=== PATIENT | female | born 1995 | race Caucasian/White ===

== ENCOUNTER 2016-12-12 15:15 | Emergency (ER) | payer BC, SELFPAY ==
[~2016-12-12] VITALS: Ht 157.5 cm; Wt 97.7 kg
[2016-12-12 15:16] VITALS: BP 146/72
== END 2016-12-12 16:39 | disposition home or self-care (01) ==
LOC: M ED 16:08
DX: R10.2 Pelvic and perineal pain (principal)

== ENCOUNTER → 2016-12-24 | Outpatient (REF) | payer SELFPAY | LOC: M SFHCPLAZ 17:24 | PROVIDERS: ATTEND Nurse Practitioner Family | DX: N92.6 Irregular menstruation, unspecified (principal) ==

== ENCOUNTER → 2016-12-26 | Outpatient (REF) | payer SELFPAY | LOC: M SFHCWAGY 16:10 | PROVIDERS: ATTEND Nurse Practitioner Family | DX: O26.891 Other specified pregnancy related conditions, first trimester (principal); N94.9 Unspecified condition associated with female genital organs and menstrual cycle ==

== ENCOUNTER → 2017-01-01 | Outpatient (REF) | payer SELFPAY | LOC: M LABDRAWP 16:55 | PROVIDERS: ATTEND Nurse Practitioner Family | DX: O03.9 Complete or unspecified spontaneous abortion without complication (principal) ==

== ENCOUNTER 2017-09-08 15:51 | Emergency (ER) | payer BC, SELFPAY ==
[2017-09-08 19:05] LABS: BASO # 0.1 10^3/uL (0.0-0.2); BASO % 0.8 % (0.0-1.0); EOS # 0.4 10^3/uL (0.0-0.50); EOS % 5.3 % (0.0-3.0); HEMATOCRIT 46.4 % (36.0-47.0); HEMOGLOBIN 14.2 g/dl (12.0-16.0); IMMATURE GRANULOCYTE % 0.2 % (0-3.0); LYMPH # 2.2 10^3/uL (1.5-6.5); LYMPH % 26.9 % (24.0-44.0); MEAN CORPUSCULAR HEMOGLOBIN 22.6 pg (27.0-33.0); MEAN CORPUSCULAR HGB CONC 30.6 g/dl (32.0-36.5); MEAN CORPUSCULAR VOLUME 73.9 fl (80.0-96.0); MONO # 0.6 10^3/uL (0.0-0.8); MONO % 7.6 % (0.0-5.0); NEUTROPHILS # 4.9 10^3/uL (1.8-7.7); NEUTROPHILS % 59.2 % (36.0-66.0); PLATELET COUNT, AUTOMATED 312 10^3/uL (150-450); RED BLOOD COUNT 6.28 10^6/uL (4.00-5.40); RED CELL DISTRIBUTION WIDTH 14.7 % (11.5-14.5); WHITE BLOOD COUNT 8.3 10^3/uL (4.0-10.0)
[2017-09-08] MEDS: NS 1,000 ML IV (19:08)
[2017-09-08 19:20] LABS: KETONE, URINE AUTO RFX NEGATIVE (NEGATIVE); LEUKOCYTE ESTERASE UR AUTO RFX NEGATIVE (NEGATIVE); MUCUS, URINE RFX SMALL (NEGATIVE); NITRITE, URINE AUTO RFX NEGATIVE (NEGATIVE); RBC, URINE AUTO RFX 1 /HPF (0-3); SPECIFIC GRAVITY UR AUTO RFX 1.028 (1.002-1.035); SQUAM EPITHELIAL CELL UR AURFX 5 /HPF (0-6); WBC, URINE AUTO RFX 1 /HPF (0-3)
[2017-09-08 19:31] LABS: ALBUMIN 3.9 GM/DL (3.2-5.2); ALBUMIN/GLOBULIN RATIO 1.11 (1.00-1.93); ALKALINE PHOSPHATASE 109 U/L (45-117); ALT/SGPT 21 U/L (12-78); ANION GAP 5 MEQ/L (8-16); AST/SGOT 11 U/L (7-37); BILIRUBIN,DIRECT 0.2 MG/DL (0.0-0.2); BILIRUBIN,TOTAL 0.5 MG/DL (0.2-1.0); BLOOD UREA NITROGEN 12 MG/DL (7-18); CALCIUM LEVEL 8.8 MG/DL (8.5-10.1); CARBON DIOXIDE LEVEL 30 MEQ/L (21-32); CHLORIDE LEVEL 106 MEQ/L (98-107); CREATININE FOR GFR 0.71 MG/DL (0.55-1.30); GLOMERULAR FILTRATION RATE > 60.0 (>60); GLUCOSE, FASTING 85 MG/DL (70-100); LIPASE 110 U/L (73-393); POTASSIUM SERUM 4.1 MEQ/L (3.5-5.1); SODIUM LEVEL 141 MEQ/L (136-145); TOTAL PROTEIN 7.4 GM/DL (6.4-8.2)
[2017-09-08] MEDS ORDERED: ISOVUE-370 76% 100ML VIAL (Q9967) As Ordered (19:58)
== END 2017-09-08 20:56 | disposition home or self-care (01) ==
LOC: M ED 15:51
DX: R10.31 Right lower quadrant pain (principal); R10.32 Left lower quadrant pain; R11.0 Nausea; N28.1 Cyst of kidney, acquired
CPT/HCPCS: Q9967

== ENCOUNTER → 2019-04-13 | Outpatient (REF) | payer BC ==
[2019-04-13 21:33] LABS: APPEARANCE, URINE CLEAR (CLEAR); BACTERIA, URINE AUTO NEGATIVE (NEGATIVE); BILIRUBIN, URINE AUTO NEGATIVE (NEGATIVE); BLOOD, URINE BLOOD NEGATIVE (NEGATIVE); COLOR, URINE AMBER (YELLOW); GLUCOSE, URINE (UA) AUTO NEGATIVE (NEGATIVE); KETONE, URINE AUTO NEGATIVE (NEGATIVE); LEUKOCYTE ESTERASE, URINE AUTO NEGATIVE (NEGATIVE); MUCUS, URINE MODERATE (NEGATIVE); NITRITE, URINE AUTO POSITIVE (NEGATIVE); PROTEIN, URINE AUTO NEGATIVE (NEGATIVE); RBC, URINE AUTO 1 /HPF (0-3); SQUAMOUS EPITHELIAL CELL UR AU 2 /HPF (0-6); WBC, URINE AUTO 2 /HPF (0-3)
== END ==
LOC: M LAB REF 10:59
PROVIDERS: ATTEND Physician Assistant Medical
DX: N39.0 Urinary tract infection, site not specified (principal)

== ENCOUNTER → 2019-06-11 | Outpatient (CLI) | payer BC, OTHER ==
[2019-06-11 13:37] LABS: BASO # 0.1 10^3/uL (0.0-0.2); BASO % 0.8 % (0.0-1.0); EOS # 0.4 10^3/uL (0.0-0.5); EOS % 6.5 % (0.0-3.0); HEMOGLOBIN 13.4 g/dl (12.0-15.5); LYMPH # 1.8 10^3/uL (1.5-5.0); LYMPH % 27.1 % (24.0-44.0); MEAN CORPUSCULAR HEMOGLOBIN 24.2 pg (27.0-33.0); MEAN CORPUSCULAR HGB CONC 31.9 g/dl (32.0-36.5); MEAN CORPUSCULAR VOLUME 75.9 fl (80.0-96.0); MONO # 0.5 10^3/uL (0.0-0.8); MONO % 6.8 % (0.0-5.0); NEUTROPHILS # 3.9 10^3/uL (1.5-8.5); NEUTROPHILS % 58.6 % (36.0-66.0); PLATELET COUNT, AUTOMATED 227 10^3/uL (150-450); RED BLOOD COUNT 5.53 10^6/uL (4.00-5.40); WHITE BLOOD COUNT 6.6 10^3/uL (4.0-10.0)
[2019-06-11 14:29] LABS: HEPATITIS C VIRUS ABY INDEX 0.1 INDEX (<0.8); HIV 1&2 SCREEN CENTAUR NEGATIVE (NEGATIVE); RUBELLA IgG QUALITATIVE IMMUNE (IMMUNE)
== END ==
LOC: M PLALAB 10:16
PROVIDERS: ATTEND Advanced Practice Midwife
DX: Z34.81 Encounter for supervision of other normal pregnancy, first trimester (principal); Z36.89 Encounter for other specified antenatal screening

== ENCOUNTER → 2019-06-17 | Outpatient (CLI) | payer BC, OTHER | LOC: M PLALAB 15:11 | PROVIDERS: ATTEND Advanced Practice Midwife | DX: Z34.82 Encounter for supervision of other normal pregnancy, second trimester (principal); Z3A.00 Weeks of gestation of pregnancy not specified ==

== ENCOUNTER → 2019-07-15 | Outpatient (REF) | payer BC, OTHER ==
[2019-07-16 13:00] LABS: CHLAMYDIA DNA AMPLIFICATION NEGATIVE (NEGATIVE); GC DNA AMPLIFICATION NEGATIVE (NEGATIVE)
== END ==
LOC: M SFHCWAGY 10:23
PROVIDERS: ATTEND Advanced Practice Midwife
DX: Z34.92 Encounter for supervision of normal pregnancy, unspecified, second trimester (principal); Z36.89 Encounter for other specified antenatal screening

== ENCOUNTER → 2019-07-27 | Outpatient (CLI) | payer BC, OTHER ==
--- NOTE | 2019-07-28 05:14 | REP ---
Clinical: Anatomical evaluation. Comparison: None . Findings: Examination demonstrates a single live intrauterine in cephalic presentation. motion is identified by technologist. Placenta is noted posterior and grade zero without evidence for placenta previa or abruption. Amniotic fluid volume is normal. Cervix measures 3.1 cm in length and appears closed. No evidence for nuchal cord. Gestational age by current measurements 19 weeks 0 days with BLANCA 12/21/2019 . FHR equals 144 beats per minute. BPD 4.6 cm 19 weeks 6 days HC 16.1 cm 18 weeks 6 days AC 13.5 cm 19 weeks 0 days FL 2.9 cm 18 weeks 6 days HL 2.7 cm 18 weeks 4 days HC/AC ratio 1.19 Estimated weight 267 grams ( 46th percentile). Anatomical assessment demonstrates normal structures including cranium, choroid plexus, cavum, cerebellum/posterior fossa, facial features, lungs, four-chamber heart/ventricular outflow tracts, diaphragm, stomach, cord insertion/three-vessel cord, kidneys/bladder, spine, and extremities. Impression: 1. Single live intrauterine in cephalic presentation demonstrating appropriate interval growth. 2. Anatomical assessment is complete and normal. No gross abnormalities are identified.
== END ==
LOC: M WHC 15:01
PROVIDERS: ATTEND Advanced Practice Midwife
DX: Z34.92 Encounter for supervision of normal pregnancy, unspecified, second trimester (principal); Z36.89 Encounter for other specified antenatal screening; Z3A.19 19 weeks gestation of pregnancy

== ENCOUNTER → 2019-09-24 | Outpatient (REF) | payer OTHER ==
[2019-09-24 14:02] LABS: HEMATOCRIT 33.7 % (36.0-47.0); HEMOGLOBIN 10.5 g/dl (12.0-15.5); MEAN CORPUSCULAR HEMOGLOBIN 24.1 pg (27.0-33.0); MEAN CORPUSCULAR HGB CONC 31.2 g/dl (32.0-36.5); MEAN CORPUSCULAR VOLUME 77.5 fl (80.0-96.0); PLATELET COUNT, AUTOMATED 219 10^3/uL (150-450); RED BLOOD COUNT 4.35 10^6/uL (4.00-5.40); WHITE BLOOD COUNT 8.8 10^3/uL (4.0-10.0)
== END ==
LOC: M PLALAB 08:21
PROVIDERS: ATTEND Advanced Practice Midwife
DX: O99.212 Obesity complicating pregnancy, second trimester (principal); Z3A.00 Weeks of gestation of pregnancy not specified

== ENCOUNTER 2019-10-03 23:33 | Outpatient (CLI) | payer OTHER ==
[~2019-10-03] VITALS: Ht 157.5 cm; Wt 105.5 kg
[2019-10-03 23:52] VITALS: BP 130/63
[2019-10-03] MEDS ORDERED: TUMS500C PO (23:55)
[2019-10-03] MEDS ORDERED: MULTTAB20 PO (23:55)
[2019-10-03] MEDS ORDERED: MAGN400C PO (23:55)
[2019-10-04 01:48] VITALS: BP 118/73
== END 2019-10-04 02:44 | disposition home or self-care (01) ==
LOC: M LDO 23:33
PROVIDERS: ATTEND Obstetrics & Gynecology
DX: O26.893 Other specified pregnancy related conditions, third trimester (principal); R10.2 Pelvic and perineal pain; Z3A.28 28 weeks gestation of pregnancy
CPT/HCPCS: 59025; 76815; G0378; G0463

== ENCOUNTER → 2019-11-24 | Outpatient (REF) | payer OTHER ==
[~2019-11-24] MED LIST: MAGN400C PO; MULTTAB20 PO; TUMS500C PO
== END ==
LOC: M SFHCWAGY 17:20
PROVIDERS: ATTEND Advanced Practice Midwife
DX: Z34.03 Encounter for supervision of normal first pregnancy, third trimester (principal)

== ENCOUNTER → 2019-12-03 | Outpatient (CLI) | payer BC ==
--- NOTE | 2019-12-03 17:30 | REP ---
Clinical: Growth evaluation Comparison: 07/27/2019 . Findings: Examination demonstrates a single live intrauterine in cephalic presentation. motion is identified by technologist. Placenta is noted anterior and grade I I without evidence for placenta previa or abruption. Amniotic fluid volume is normal. Cervix measures 3.3 cm in length and appears closed. No evidence for nuchal cord. Gestational age by first US 37 weeks 3 days with BLANCA 12/21/2019 . Gestational age by current measurements 36 weeks 6 days with BLANCA 12/25/2019 . FHR equals 143 beats per minute. BPD 9.1 cm 36 weeks 6 days HC 32.9 cm 37 weeks 3 days AC 34.0 cm 37 weeks 6 days FL 7.2 cm 36 weeks 6 days HL 6.4 cm 36 weeks 6 days HC/AC ratio 0.97 Estimated weight 3218 grams ( 56 percentile). Amniotic fluid index: 21.6 cm Impression: Single live intrauterine in cephalic presentation demonstrating appropriate interval growth. No gross abnormalities are identified.
== END ==
LOC: M WHC 14:54
PROVIDERS: ATTEND Advanced Practice Midwife
DX: O26.849 Uterine size-date discrepancy, unspecified trimester (principal)

== ENCOUNTER → 2019-12-07 | Outpatient (REF) | payer OTHER | LOC: M PLALAB 11:12 | PROVIDERS: ATTEND Advanced Practice Midwife | DX: Z3A.01 Less than 8 weeks gestation of pregnancy (principal) ==

== ENCOUNTER 2019-12-27 16:18 | Inpatient (IN) | payer BC, OTHER ==
[~2019-12-27] VITALS: Ht 157.5 cm; Wt 114.9 kg
[2019-12-27 16:34] VITALS: BP 126/65
[2019-12-27] MEDS ORDERED: MAPA500T2 PO (17:07)
[2019-12-27] MEDS ORDERED: LACTATED RINGER'S 1000 ML IV STA (17:37)
[2019-12-27] MEDS ORDERED: miSOPROStol 50 MCG 1/2 TAB (S0191) PO SCH (17:45)
[2019-12-27 17:59] LABS: HEMATOCRIT 29.6 % (36.0-47.0); MEAN CORPUSCULAR HEMOGLOBIN 21.1 pg (27.0-33.0); MEAN CORPUSCULAR HGB CONC 30.4 g/dl (32.0-36.5); MEAN CORPUSCULAR VOLUME 69.3 fl (80.0-96.0); PLATELET COUNT, AUTOMATED 231 10^3/uL (150-450); RED BLOOD COUNT 4.27 10^6/uL (4.00-5.40); WHITE BLOOD COUNT 9.5 10^3/uL (4.0-10.0)
--- NOTE | 2019-12-27 18:13 | HPEPDOC ---
Obstetrical History & Physical General Date of Admission Dec 27, 2019 at 16:18 Primary Care Physician: BREANN PENG CNM History of Present Illness Patient is a 24-year-old female who is a at 40.6 weeks gestation with an BLANCA of 12/21/19 based off of her LMP and consistent with her first trimester ultrasound. She initiated care in her first trimester of with [facility]. Her has been complicated by obesity with her BMI is now 46. She presents for an induction of labor due to being 40+ weeks gestation. Reports active movement. Denies contractions, leaking of fluid or vaginal bleeding. Chief Complaint: Induction of labor Information Provided By: Patient Age: 24 : 2 Term: 0 Pre-term: 0 Abortions: 1 Livin Care Care: Good Care Dating Final EDC: Dec 21, 2019 Final EDC by: LMP LMP: Mar 16, 2019 EGA at Admission: 40.6 Antepartum Course Diagnos(e)s obesity Height (inches): 62 Pre- weight (lbs.): 209 Admission Weight (lbs.): 249 Change in Weight (lbs.): 40 Past Medical History Past Obstetrical History : Past Obstetrical History: Primgravida [employer] History: No pertinent history Past Medical History Medical History Non-contributory Surgical History: Denies/None Family History Significant Family History: Diabetes Social History Marital Status: Single Family situation: Spouse/partner home Psychosocial History: No pertinent psych hx * Smoker: non-smoker Alcohol: Denies Drugs: denies Allergies Coded Allergies: No Known Allergies (Unverified , 12/12/16) Medications Scheduled No122/Iron/Folic Acid ( Multi Tablet) 1 Each Tablet, 1 TAB PO DAILY Scheduled PRN Acetaminophen (Mapap) 500 Mg Tablet, 1,000 MG PO PRN PRN for PAIN OR FEVER Physical Examination Physical Examination GENERAL: Alert and oriented times three. BREAST: . ABDOMEN: Gravid and non-tender to touch. FETUS: Is vertex (VTX) by sterile vaginal examination (SVE), fetus is vertex (VTX) by Jc. HEART RATE: Regular rate and rhythm. LUNGS: Clear to auscultation (CTA). EXTREMITIES: Generalized edema. No clonus. Deep tendon reflexes (DTRs) + 2. Vital Signs/I&O Vital Signs Date Time Temp Pulse Resp B/P (MAP) Pulse Ox O2 Delivery O2 Flow Rate FiO2 12/27/19 16:34 97.5 102 18 126/65 (85) Laboratory Data 24H LABS Laboratory Tests 2 12/27/19 16:23: Serology Scanned Report Hepatitis B Testing Urine Culture: No Growth Pertinent Laboratoy Data Blood Type: AB+ RBC Antibody Screen: Negative HIV: Negative Hepatitis B: Negative Hepatitis C: Negative Rapid Plasma Reagin: Nonreactive Rubella: Immune Chlamydia/Gonorrhea: Negative Group B Streptococcus: Negative Glucose Tolerance Test: 111 Anatomy Ultrasound Ultrasound Date: Dec 03, 2019 Normal Anatomy: Yes (cephalic with SONALI 21.6 cm) Placenta Previa: No Estimated Weight (grams): 3218 Vaginal Examination Dilation: 1cm Effacement: other (75%) Station: Other (Ballotable) Cervical Consistency: Medium Cervical Position: Anterior Presentation: Cephalic presentation Position: Vertex (occiput) Assessment Heart Rate (FHR): 140 Variability: Moderate Accelerations: Positive Decelerations: None Tocometer Contractions: Yes Frequency: irregular Multi-drug resistant Organism: No history of MDRO Assessment/Plan Assessment IUP at 40.6 weeks gestation GBS negative Category I FHR tracing elective induction of labor for post dates Plan Admit to L&D for elective IOL due to post dates. OOB ad ruben. Diet: regular now and switch to clears when IV Pitocin. Group B Streptococcus (GBS) negative. Labs and intravenous (IV) per unit protocol. Counseled on Cytotec, boss bulb, and IV Pitocin for induction of labor (IOL). Anesthesia consult per patient's request for an epidural. Lactated Ringers (LR): Bolus 800 mL prior to epidural, then at 125 mL/hr. Start Cytotec per order. Anticipate cervical ripening. C-S as appropriate. BREANN PENG CNM Dec 27, 2019 18:13
[2019-12-27 19:50] VITALS: BP 114/68
[2019-12-27 21:30] VITALS: BP 132/61
[2019-12-27] MEDS ORDERED: BUTORPHANOL 2 MG/ML INJ (J0595) IV ONE (22:30)
[2019-12-27] MEDS ORDERED: PROMETHAZINE INJ 25 MG/ML VIAL (J2550) IV ONE (22:30)
--- NOTE | 2019-12-27 22:37 | IPNPDOC ---
Obstetrical Progress Note Date of Service Dec 27, 2019 Subjective Patient reports she feels her contractions and they feel like heavy cramps. Objective Vital Signs Date Time Temp Pulse Resp B/P (MAP) Pulse Ox O2 Delivery O2 Flow Rate FiO2 12/27/19 21:30 103 132/61 (84) 12/27/19 19:50 18 12/27/19 16:34 97.5 Assessment Heart Rate (FHR): 135 Variability: Moderate Accelerations: Positive Decelerations: None Heart Rate Tracing: Category I Tocometer Contractions: Yes Frequency: regular, every 1-3 min. Sterile Vaginal Examination Dilation: 1cm Effacement (%): 80% Station: -3 Cervical Consistency: Medium Cervical Position: Anterior Postion/Presentation: Cephalic presentation Assessment and Plan Age: 24 : 2 Term: 0 Pre-term: 0 Abortions: 1 Livin EGA at Admission: 40.6 Status: Reassuring Group B Streptococcus: Negative Anticipate: Vaginal Delivery Additional Comments Arriola bulb placed with 60 cc of NS. Patient tolerated insertion well. Desires IV pain medication to help with cramping. Stadol and phenergan ordered. Side effects of medication reviewed with patient and SO. BREANN PENG CNM Dec 27, 2019 22:37
[2019-12-27] MEDS ORDERED: OXYTOCIN DRIP 30 UNITS in IV 1 EA IV SCH (22:45)
[2019-12-27] MEDS: LR 1,000 ML IV SCH (22:48)
[2019-12-27 23:00] VITALS: BP 111/60
[2019-12-27 23:30] VITALS: BP 107/54
[2019-12-28] VITALS (113 sets, daily range): BP systolic 82–137; BP diastolic 42–76
[2019-12-28] MEDS ORDERED: FENTANYL 2MCG/ML ROPIVACAINE 0.2% IN 0.9% NACL 100ML IVBAG As Ordered ONE ×2 (03:45→12:52)
[2019-12-28] MEDS ORDERED: diphenhydrAMINE 50MG/ML VIAL (J1200) IV PRN ×2 (06:00→20:52)
[2019-12-28] MEDS ORDERED: LACTATED RINGER'S 1000 ML IV PRN (06:00)
[2019-12-28] MEDS ORDERED: REFRIGERATOR IV KEYS XX PRN (06:00)
[2019-12-28] MEDS ORDERED: FENTANYL/ROPIVACAINE/NACL BAG 100 ML EPIDURAL SCH (06:00)
[2019-12-28] MEDS ORDERED: EPIDURAL/PCA KEYS XX PRN (06:00)
[2019-12-28] MEDS ORDERED: NALOXONE INJ 0.4MG/1ML VIAL (J2310 PER 1MG) IV PRN ×3 (06:00→20:52)
[2019-12-28] MEDS ORDERED: EPIDURAL COMMENT XX SCH (06:00)
[2019-12-28] MEDS ORDERED: ONDANSETRON 4MG/2ML VIAL IV PRN ×4 (06:00→21:30)
[2019-12-28] MEDS: ePHEDrine SULFATE 25 MG/5 ML(5MG/ML) SYRINGE IV PRN ×4 (07:34→15:27)
[2019-12-28] MEDS: LR 1,000 ML IV SCH ×4 (07:53→20:06)
[2019-12-28] MEDS ORDERED: ePHEDrine INJ 50 MG/ML VIAL IV PRN (15:30)
[2019-12-28] MEDS ORDERED: LR 500 ML IV ONE (15:30)
[2019-12-28] MEDS ORDERED: ePHEDrine SULFATE 25 MG/5 ML(5MG/ML) SYRINGE IV PRN (15:45)
[2019-12-28] MEDS ORDERED: ceFAZolin 2 GM/D5W 50 ML IV BAG (J0690 PER 500MG) As Ordered ONE (18:25)
[2019-12-28] MEDS ORDERED: BICITRA 30ML SOLN UDC As Ordered ONE (18:25)
[2019-12-28] MEDS ORDERED: AZITHROMYCIN INJ 500MG VIAL (J0456 PER 500MG) As Ordered ONE (18:26)
--- NOTE | 2019-12-28 18:35 | IPNPDOC ---
Obstetrical Progress Note Date of Service Dec 28, 2019 Subjective Patient with increasing pain. She was just topped off per anesthesia. She was last examined approximately 1330. She was unchanged at 5 cm, 75% effaced, -2 station. Performed artificial rupture membranes, clear fluid. She was just reexamined and currently unchanged at 5 cm, 75%, -2 station. Patient requesting management options at this time. I discuss further Pitocin augmentation of her labor versus proceeding with section for arrest dilation. After consultation and reviewing the risk and benefits of both, patient has decided to proceed with section. Consent forms have been signed. Anesthesia has been notified. Objective Vital Signs Date Time Temp Pulse Resp B/P (MAP) Pulse Ox O2 Delivery O2 Flow Rate FiO2 12/28/19 15:35 83 18 101/52 (68) 12/28/19 15:12 97.4 Assessment Variability: Moderate Accelerations: Positive Heart Rate Tracing: Category I Tocometer Contractions: Yes Frequency: regular Sterile Vaginal Examination Dilation: 5 cm Effacement (%): 80% Station: -2 Cervical Consistency: Soft Cervical Position: Anterior Assessment and Plan Age: 24 : 1 Status: Reassuring Group B Streptococcus: Negative Anticipate: Section RAFAT GILL MD. Dec 28, 2019 18:35
[2019-12-28] MEDS ORDERED: ceFAZolin SOD 2 GM in IV 1 EA IV ONE (19:30)
[2019-12-28] MEDS ORDERED: AZITHROMYCIN INJ 500 MG, VIAL MATE ADAPTER 1 EACH in D5W 250 ML IV ONE (19:30)
[2019-12-28] MEDS ORDERED: OXYTOCIN DRIP 30 UNITS in IV 1 EA IV SCH ×2 (19:57→20:06)
[2019-12-28] MEDS ORDERED: DOCUSATE SODIUM 100 MG CAP PO PRN (20:00)
[2019-12-28] MEDS ORDERED: ACETAMINOPHEN 500 MG TAB PO PRN (20:00)
[2019-12-28] MEDS ORDERED: BICITRA 30ML SOLN UDC PO ONE (20:00)
[2019-12-28] MEDS ORDERED: ACETAMINOPHEN TAB 650MG DOSE (2X325MG) PO PRN (20:00)
[2019-12-28] MEDS ORDERED: IBUPROFEN 600MG TAB PO PRN (20:00)
[2019-12-28] MEDS ORDERED: METHYLERGONOVINE MALEATE 0.2 MG TAB PO PRN (20:00)
[2019-12-28] MEDS ORDERED: IBUPROFEN 800 MG TAB PO PRN (20:00)
[2019-12-28] MEDS ORDERED: ANUSOL HC CREAM 30GM TOP PRN (20:00)
[2019-12-28] MEDS ORDERED: MEASLES,MUMPS,RUBELLA VACCINE INJ (MMR-II) (90707) SC SCH ×2 (20:00→20:15)
[2019-12-28] MEDS ORDERED: MOM 30ML SUSPENSION UDC PO PRN ×2 (20:00→20:15)
[2019-12-28] MEDS ORDERED: RHOGAM 300 MCG (1500 IU) INJ (J2790) IM SCH ×2 (20:00→20:15)
[2019-12-28] MEDS ORDERED: DIBUCAINE 1% OINTMENT 30GM TOP PRN (20:00)
--- NOTE | 2019-12-28 20:09 | ROOPDOC ---
[facility] Report Of Operation Report of Operation DATE OF PROCEDURE: 12/28/19 SURGEON: Anaid Potter M.D. GEOTECHNICAL ENGINEERING TECHNICIAN: Tara Hutchison ANESTHESIA:. Epidural PREOPERATIVE DIAGNOSIS:. Arrest of dilation POSTOPERATIVE DIAGNOSIS: Arrested dilation ESTIMATED BLOOD LOSS: 700 mL URINE OUTPUT: 150 mL INTRAVENOUS FLUIDS: 1500 mL lactated Ringer solution PREOPERATIVE ANTIBIOTICS: 2 g of Ancef and 500 mg azithromycin OPERATIVE FINDINGS: Liveborn male , Apgars 9 and 9. Weight was 8 lbs. 12 oz. or 3097 g DESCRIPTION OF PROCEDURE: After informed consent was obtained and written consent was reviewed. The patient was brought to the operating room where spinal anesthesia was placed. She was then placed in the supine position with a left lateral tilt. Arriola catheter was placed and to gravity. Patient was then prepped and draped in the normal sterile fashion. A timeout operating room was performed identifying the patient, procedure be performed as well as drug allergies. Anesthesia was tested and deemed to be adequate. Pfannenstiel skin incision was made and this was carried down to the underlying rectus fascia. The fascia was then scored and this incision was extended bilaterally. The fascia was then dissected off the underlying rectus muscle superiorly and inferiorly. The rectus muscles were then in the midline. The peritoneum is then entered. Vesicouterine peritoneum was then tented and excised and a bladder flap was created. Mobius retractor was then placed. Next, a curvilinear incision was then made in the lower uterine segment. Amniotomy was performed, productive, clear fluid. The head was brought to the level of the incision atraumatically and delivered along the shoulders and corpus. The cord was clamped x2. The infa nt was brought over to the warmer with a good cry. Placenta was drained and delivered grossly intact. The uterus was cleared of all clots and debris and the uterine incision was then closed in 2 layers using 0 Vicryl, first in a running locking fashion followed by second layer for imbrication. The abdomen suctioned. Surgical sites reinspected and noted be hemostatic. The retractor was then removed. The anterior peritoneum was then reapproximated with 3-0 Vicryl. The rectus muscles were reapproximated 3-0 Vicryl. The fascia was then closed using 0 Vicryl in a running nonlocking fashion. The subcutaneous tissues was then irrigated and suctioned. Subcutaneous tissue was reapproximated using 3-0 Vicryl. Several subdermal stitch is placed using 3-0 Vicryl and the skin was closed with 4-0 Monocryl and subcuticular fashion. This incision was then cleaned and dried and was dressed. The patient was then taken to recovery in stable condition. All counts were correct. My certified surgical assistant Tara Hutchison played in an essential role during the operation. They assisted with tissue identification retraction, delivery of the , as well as wound closure. ANAID POTTER MD. Dec 28, 2019 20:09
[2019-12-28] MEDS ORDERED: PERCOCET 5MG/325MG TAB PO PRN ×2 (20:15)
[2019-12-28] MEDS ORDERED: LIDOCAINE 2% W/EPIN INJ 20ML **PRES FREE As Ordered ONE (20:16)
[2019-12-28] MEDS ORDERED: OXYTOCIN INJ 10 UNITS/ML VIAL (J2590) As Ordered ONE (20:17)
[2019-12-28] MEDS ORDERED: dexameTHASONE 4 MG/ML 1ML VIAL (J1100 PER 1MG) As Ordered ONE ×2 (20:27→20:28)
[2019-12-28] MEDS ORDERED: ONDANSETRON 4MG/2ML VIAL As Ordered ONE (20:27)
[2019-12-28] MEDS ORDERED: ePHEDrine SULFATE 25 MG/5 ML(5MG/ML) SYRINGE As Ordered ONE (20:32)
[2019-12-28] MEDS ORDERED: MORPHINE PRES-FREE INJ 10 MG/10 ML VIAL (J2274) As Ordered ONE (20:36)
[2019-12-28] MEDS ORDERED: KETOROLAC 60MG 2ML VIAL As Ordered ONE (20:42)
[2019-12-28] MEDS: KETOROLAC 30 MG/ML 1ML VIAL IV SCH (20:52)
[2019-12-28] MEDS ORDERED: NALBUPHINE HCL 10 MG/ML AMP (J2300) IV PRN (20:52)
[2019-12-28] MEDS ORDERED: METOCLOPRAMIDE INJ 10MG/2ML VIAL (J2765 PER 1) IV PRN (20:52)
[2019-12-28] MEDS: DOCUSATE SODIUM 100 MG CAP PO SCH (21:00)
[2019-12-28] MEDS ORDERED: LR 1,000 ML IV SCH (21:30)
[2019-12-28] MEDS ORDERED: OXYTOCIN 30 UNITS IN 0.9% NaCl 500ML IV BAG (J2590) As Ordered ONE (21:30)
[2019-12-28] MEDS ORDERED: fentaNYL 100 MCG/2 ML INJECTION (J3010) IV PRN (21:30)
[2019-12-29] VITALS (8 sets, daily range): BP systolic 98–130; BP diastolic 52–61
[2019-12-29] MEDS: LR 1,000 ML IV SCH ×3 (03:04→18:15)
[2019-12-29] MEDS: KETOROLAC 30 MG/ML 1ML VIAL IV SCH ×3 (03:04→18:12)
[2019-12-29 06:41] LABS: HEMATOCRIT 22.9 % (36.0-47.0); MEAN CORPUSCULAR HEMOGLOBIN 21.2 pg (27.0-33.0); MEAN CORPUSCULAR HGB CONC 30.6 g/dl (32.0-36.5); MEAN CORPUSCULAR VOLUME 69.4 fl (80.0-96.0); PLATELET COUNT, AUTOMATED 200 10^3/uL (150-450); WHITE BLOOD COUNT 17.2 10^3/uL (4.0-10.0)
--- NOTE | 2019-12-29 07:50 | IPNPDOC ---
Progress Note Date of Service: Dec 29, 2019 Day#: 1 Progress Note SUBJECT: Doing well without complaints. Ambulating and pain is well-controlled. Reports minimal lochia. [+breast feeding] OBJECTIVE: VITAL SIGNS: Within normal limits, afebrile. Alert and oriented times three. Abdomen: Fundus firm at U-2. Soft, NTTP. Incision: Dressed Ext: neg calf tenderness. ASSESSMENT: Postoperative/ day #1 status primary section for arrested dilation. Recovering in stable condition. PLAN: 1. Continue routine postoperative/ care 2. Discharge plans for tomorrow VS, I&O, 24H, Fishbone Vital Signs/I&O Vital Signs Date Time Temp Pulse Resp B/P (MAP) Pulse Ox O2 Delivery O2 Flow Rate FiO2 12/29/19 06:00 97.4 94 18 98/54 (69) 95 Room Air I&O- Last 24 Hours up to 6 AM 12/29/19 06:00 Intake Total 4395 ml Output Total 4200 ml Balance 195 ml Laboratory Data 24H LABS Laboratory Tests 2 12/29/19 06:22: Nucleated Red Blood Cells % (auto) 0.0 CBC/BMP Laboratory Tests 12/29/19 06:22 RAFAT GILL MD. Dec 29, 2019 07:50
[2019-12-29] MEDS ORDERED: IBUP80TA PO (07:59)
[2019-12-29] MEDS ORDERED: PERCOCET PO (07:59)
[2019-12-29] MEDS ORDERED: PRENATAL VITAMINS CHEWABLE TABLET PO SCH (09:00)
[2019-12-29] MEDS: PRENATAL VITAMINS CHEWABLE TABLET PO SCH (09:06)
[2019-12-29] MEDS: DOCUSATE SODIUM 100 MG CAP PO SCH ×2 (09:06→21:30)
[2019-12-29] MEDS ORDERED: LACTATED RINGER'S 1000 ML IV ONE (10:15)
[2019-12-29] MEDS ORDERED: IBUPROFEN 800 MG TAB PO SCH (23:00)
[2019-12-30] MEDS: IBUPROFEN 800 MG TAB PO SCH ×2 (01:38→11:19)
[2019-12-30 02:09] VITALS: BP 110/56
[2019-12-30 06:05] VITALS: BP 109/54
[2019-12-30] MEDS: PRENATAL VITAMINS CHEWABLE TABLET PO SCH (07:46)
[2019-12-30] MEDS: DOCUSATE SODIUM 100 MG CAP PO SCH (07:46)
[2019-12-30 10:00] VITALS: BP 117/56
== END 2019-12-30 14:35 | disposition home or self-care (01) | DRG 540 ==
LOC: M LDI 16:18 → M OBS 12-28 22:28
PROVIDERS: ADMIT Advanced Practice Midwife; ATTEND Advanced Practice Midwife
PROC: 3E0P7VZ Introduction of Hormone into Female Reproductive, Via Natural or Artificial Opening (ICD-10-PCS; 2019-12-27)
PROC: 10907ZC Drainage of Amniotic Fluid, Therapeutic from Products of Conception, Via Natural or Artificial Opening (ICD-10-PCS; 2019-12-28)
PROC: 10D00Z1 Extraction of Products of Conception, Low, Open Approach (ICD-10-PCS; principal; 2019-12-28 19:14)
DX: O48.0 Post-term pregnancy (principal); Z68.42 Body mass index [BMI] 45.0-49.9, adult; E66.9 Obesity, unspecified; O99.214 Obesity complicating childbirth; Z37.0 Single live birth; Z3A.40 40 weeks gestation of pregnancy; O62.0 Primary inadequate contractions

== ENCOUNTER 2020-11-19 08:45 | Emergency (ER) | payer BC, OTHER ==
[~2020-11-19] VITALS: Ht 157.5 cm; Wt 107.1 kg
[~2020-11-19 08:45] MED LIST changes: +IBUP80TA PO; +MAPA500T2 PO; +PERCOCET PO
[2020-11-19 09:33] LABS: BASO # 0.1 10^3/uL (0.0-0.2); BASO % 1.2 % (0.0-1.0); EOS # 0.6 10^3/uL (0.0-0.5); EOS % 9.9 % (0.0-3.0); HEMATOCRIT 39.7 % (36.0-47.0); HEMOGLOBIN 11.8 g/dl (12.0-15.5); LYMPH # 1.9 10^3/uL (1.5-5.0); LYMPH % 32.9 % (24.0-44.0); MEAN CORPUSCULAR HEMOGLOBIN 21.4 pg (27.0-33.0); MEAN CORPUSCULAR HGB CONC 29.7 g/dl (32.0-36.5); MEAN CORPUSCULAR VOLUME 71.9 fl (80.0-96.0); MONO # 0.4 10^3/uL (0.0-0.8); MONO % 7.4 % (2.0-8.0); NEUTROPHILS # 2.8 10^3/uL (1.5-8.5); NEUTROPHILS % 48.4 % (36.0-66.0); PLATELET COUNT, AUTOMATED 294 10^3/uL (150-450); RED BLOOD COUNT 5.52 10^6/uL (4.00-5.40); WHITE BLOOD COUNT 5.8 10^3/uL (4.0-10.0)
[2020-11-19 09:59] LABS: BLOOD UREA NITROGEN 15 MG/DL (7-18); CALCIUM LEVEL 8.2 MG/DL (8.5-10.1); CARBON DIOXIDE LEVEL 26 MEQ/L (21-32); CHLORIDE LEVEL 109 MEQ/L (98-107); GLOMERULAR FILTRATION RATE > 60.0 (>60); GLUCOSE, FASTING 84 MG/DL (70-100); HCG, SERUM QUANTITATIVE 8 MIU/ML; POTASSIUM SERUM 4.4 MEQ/L (3.5-5.1); SODIUM LEVEL 140 MEQ/L (136-145)
--- NOTE | 2020-11-19 11:00 | REP ---
INDICATION: right adenexal pain, r/o ectopic. COMPARISON: None. TECHNIQUE: Transabdominal and transvaginal scanning are performed. FINDINGS: A normal-sized empty uterus is seen with overall dimensions of 7.4 x 3.9 x 5.6 cm. Endometrial echo is 0.3 cm thick. No free fluid is seen in the cul-de-sac. No focal uterine mass is seen. Normal ovaries are observed bilaterally. Right ovarian dimensions are 2.8 x 1.6 x 2.2 cm. Left ovary measures 3.2 x 1.9 x 3.0 cm. Ovarian Doppler flow is confirmed in both ovaries. IMPRESSION: No morphologic abnormality. Normal-sized empty uterus. No adnexal mass, cyst, or free fluid. Nonspecific sonographic findings. Clinical and possibly sonographic follow-up advised. <Electronically signed by Berry Charles > 11/19/20 [id number]
[2020-11-19 12:20] VITALS: BP 113/70
== END 2020-11-19 12:04 | disposition home or self-care (01) ==
LOC: M ED 08:45
DX: O20.0 Threatened abortion (principal); Z98.890 Other specified postprocedural states; Z3A.00 Weeks of gestation of pregnancy not specified

== ENCOUNTER → 2020-11-21 | Outpatient (REF) | payer BC, OTHER ==
[2020-11-21 11:46] LABS: HCG, SERUM QUANTITATIVE 22 MIU/ML
[2020-11-21 11:53] LABS: HCG, SERUM QUALITATIVE POSITIVE (NEGATIVE)
== END ==
LOC: M LAB REF 10:56
PROVIDERS: ATTEND Physician Assistant Medical
DX: Z32.00 Encounter for pregnancy test, result unknown (principal)

== ENCOUNTER → 2020-12-20 | Outpatient (REF) | payer OTHER ==
[~2020-12-20] MED LIST changes: +TRIA1CR80 TOP
== END ==
LOC: M PLALAB 14:21
PROVIDERS: ATTEND Advanced Practice Midwife
DX: O36.80X0 Pregnancy with inconclusive fetal viability, not applicable or unspecified (principal)

== ENCOUNTER 2020-12-21 22:06 | Emergency (ER) | payer BC, OTHER ==
[~2020-12-21] VITALS: Ht 157.5 cm; Wt 110.6 kg
[~2020-12-21 22:06] MED LIST changes: -TRIA1CR80 TOP
[2020-12-21 22:07] VITALS: BP 139/86
[2020-12-22] MEDS ORDERED: TRIA1CR80 TOP (00:30)
== END 2020-12-22 01:22 | disposition home or self-care (01) ==
LOC: M ED 22:06
DX: D27.9 Benign neoplasm of unspecified ovary (principal); R59.9 Enlarged lymph nodes, unspecified

== ENCOUNTER → 2020-12-22 | Outpatient (REF) | payer OTHER ==
[~2020-12-22] MED LIST changes: +TRIA1CR80 TOP
== END ==
LOC: M PLALAB 15:02
PROVIDERS: ATTEND Advanced Practice Midwife
DX: O26.851 Spotting complicating pregnancy, first trimester (principal)

== ENCOUNTER → 2020-12-25 | Outpatient (CLI) | payer OTHER | LOC: M PLALAB 10:28 | PROVIDERS: ATTEND Advanced Practice Midwife | DX: O02.1 Missed abortion (principal) ==

== ENCOUNTER → 2021-01-11 | Outpatient (CLI) | payer BC, OTHER | LOC: M LAB 15:48 | PROVIDERS: ATTEND Advanced Practice Midwife | DX: O03.9 Complete or unspecified spontaneous abortion without complication (principal) ==

== ENCOUNTER → 2021-01-18 | Outpatient (CLI) | payer BC, OTHER | LOC: M PLALAB 14:49 | PROVIDERS: ATTEND Advanced Practice Midwife | DX: O03.9 Complete or unspecified spontaneous abortion without complication (principal) ==

== ENCOUNTER 2021-01-21 11:34 | Emergency (ER) | payer BC, OTHER ==
[~2021-01-21] VITALS: Ht 157.5 cm; Wt 109.7 kg
[~2021-01-21 11:34] MED LIST changes: +METHYLERGONOVINE MALEATE 0.2 MG TAB PO SCH
[2021-01-21 13:52] LABS: BASO # 0.1 10^3/uL (0.0-0.2); BASO % 0.8 % (0.0-1.0); EOS # 0.5 10^3/uL (0.0-0.5); EOS % 7.2 % (0.0-3.0); HEMATOCRIT 38.8 % (36.0-47.0); HEMOGLOBIN 11.6 g/dl (12.0-15.5); LYMPH # 1.8 10^3/uL (1.5-5.0); LYMPH % 28.8 % (24.0-44.0); MEAN CORPUSCULAR HEMOGLOBIN 21.2 pg (27.0-33.0); MEAN CORPUSCULAR HGB CONC 29.9 g/dl (32.0-36.5); MEAN CORPUSCULAR VOLUME 71.1 fl (80.0-96.0); MONO # 0.5 10^3/uL (0.0-0.8); MONO % 7.3 % (2.0-8.0); NEUTROPHILS # 3.5 10^3/uL (1.5-8.5); NEUTROPHILS % 55.7 % (36.0-66.0); PLATELET COUNT, AUTOMATED 292 10^3/uL (150-450); RED BLOOD COUNT 5.46 10^6/uL (4.00-5.40); WHITE BLOOD COUNT 6.3 10^3/uL (4.0-10.0)
[2021-01-21 14:24] LABS: BLOOD UREA NITROGEN 14 MG/DL (7-18); CALCIUM LEVEL 8.3 MG/DL (8.5-10.1); CARBON DIOXIDE LEVEL 28 MEQ/L (21-32); CHLORIDE LEVEL 107 MEQ/L (98-107); CREATININE FOR GFR 0.64 MG/DL (0.55-1.30); GLOMERULAR FILTRATION RATE > 60.0 (>60); GLUCOSE, FASTING 83 MG/DL (70-100); HCG, SERUM QUANTITATIVE 218 MIU/ML; SODIUM LEVEL 139 MEQ/L (136-145)
--- NOTE | 2021-01-21 15:15 | REP ---
INDICATION: r/o retained products--first trimester miscarriage. History of retained products of conception on an outside scan done 8 days ago. COMPARISON: No comparison sonography is available.. TECHNIQUE: Transabdominal and transvaginal scanning. FINDINGS: Uterine dimensions are 7.3 x 4.6 x 6.3 cm. There is heterogeneous thickening and complex echogenic material in the endometrium, 2.9 x 2.9 x 2.2 cm. There is hyperemic flow in this material consistent with retained products of conception. Normal ovaries are seen. Right ovarian dimensions are 2.9 x 2.4 x 2.0 cm. Left ovary measures 2.8 x 2.1 x 2.7 cm. IMPRESSION: 2.9 cm area of echogenic material in the endometrium containing vascular flow consistent with retained products of conception. <Electronically signed by Berry Charles > 01/21/21 [id number]
[2021-01-21 15:38] LABS: APPEARANCE, URINE CLEAR (CLEAR); BACTERIA, URINE AUTO NEGATIVE (NEGATIVE); BILIRUBIN, URINE AUTO NEGATIVE (NEGATIVE); BLOOD, URINE BLOOD 1+ (NEGATIVE); COLOR, URINE YELLOW (YELLOW); GLUCOSE, URINE (UA) AUTO NEGATIVE (NEGATIVE); KETONE, URINE AUTO NEGATIVE (NEGATIVE); LEUKOCYTE ESTERASE, URINE AUTO NEGATIVE (NEGATIVE); MUCUS, URINE SMALL (NEGATIVE); NITRITE, URINE AUTO NEGATIVE (NEGATIVE); PROTEIN, URINE AUTO NEGATIVE (NEGATIVE); RBC, URINE AUTO 1 /HPF (0-3); SPECIFIC GRAVITY URINE AUTO 1.028 (1.002-1.035); SQUAMOUS EPITHELIAL CELL UR AU 1 /HPF (0-6); UROBILINOGEN, URINE AUTO 0.2 mg/dL (0.0-2.0); WBC, URINE AUTO 1 /HPF (0-3)
[2021-01-21] MEDS ORDERED: METHYLERGONOVINE MALEATE 0.2 MG TAB PO ONE (15:45)
[2021-01-21 15:56] VITALS: BP 127/78
== END 2021-01-21 16:12 | disposition home or self-care (01) ==
LOC: M ED 11:34
DX: O03.4 Incomplete spontaneous abortion without complication (principal)

== ENCOUNTER → 2021-01-25 | Outpatient (CLI) | payer BC, OTHER ==
[~2021-01-25] MED LIST changes: -METHYLERGONOVINE MALEATE 0.2 MG TAB PO SCH
== END ==
LOC: M PLALAB 13:29
PROVIDERS: ATTEND Advanced Practice Midwife
DX: O03.9 Complete or unspecified spontaneous abortion without complication (principal)

== ENCOUNTER → 2021-02-01 | Outpatient (CLI) | payer BC, OTHER | LOC: M PLALAB 13:28 | PROVIDERS: ATTEND Advanced Practice Midwife | DX: O03.9 Complete or unspecified spontaneous abortion without complication (principal) ==

== ENCOUNTER → 2021-02-06 | Outpatient (CLI) | payer BC, OTHER | LOC: M PLALAB 13:25 | PROVIDERS: ATTEND Advanced Practice Midwife | DX: O46.91 Antepartum hemorrhage, unspecified, first trimester (principal) ==

== ENCOUNTER → 2021-02-07 | Outpatient (CLI) | payer BC, OTHER | LOC: M LABSMTC 12:36 | PROVIDERS: ATTEND Anesthesiology | DX: Z01.818 Encounter for other preprocedural examination (principal); Z20.822 Contact with and (suspected) exposure to COVID-19 ==

== ENCOUNTER 2021-02-08 12:39 | Day surgery (SDC) | payer BC, OTHER ==
[~2021-02-08] VITALS: Ht 157.5 cm; Wt 107.0 kg
[~2021-02-08 12:39] MED LIST changes: +LIDOCAINE 1% MDV 20ML VIAL SQ PRN; +LR 1,000 ML IV ONE
[2021-02-08] MEDS ORDERED: MIDAZOLAM INJ 2MG/2ML VIAL (J2250 PER 1MG) As Ordered ONE (13:04)
[2021-02-08] MEDS ORDERED: dexameTHASONE 4 MG/ML 1ML VIAL (J1100 PER 1MG) As Ordered ONE (13:04)
[2021-02-08] MEDS ORDERED: ONDANSETRON 4MG/2ML VIAL As Ordered ONE (13:04)
[2021-02-08] MEDS ORDERED: propofoL 200 MG/20 ML VIAL As Ordered ONE (13:04)
[2021-02-08] MEDS ORDERED: fentaNYL 100 MCG/2 ML INJECTION (J3010) As Ordered ONE (13:04)
[2021-02-08] MEDS ORDERED: LIDOCAINE 2% 100MG/5ML SDV (FOR ANES.) As Ordered ONE (13:04)
[2021-02-08 13:14] LABS: HEMATOCRIT 37.4 % (36.0-47.0); HEMOGLOBIN 11.1 g/dl (12.0-15.5); MEAN CORPUSCULAR HGB CONC 29.7 g/dl (32.0-36.5); MEAN CORPUSCULAR VOLUME 70.8 fl (80.0-96.0); PLATELET COUNT, AUTOMATED 318 10^3/uL (150-450); RED BLOOD COUNT 5.28 10^6/uL (4.00-5.40); WHITE BLOOD COUNT 6.4 10^3/uL (4.0-10.0)
[2021-02-08] MEDS ORDERED: LIDOCAINE 1% MDV 20ML VIAL As Ordered ONE ×2 (13:49→14:35)
[2021-02-08] MEDS ORDERED: ACETAMINOPHEN 1000MG 100ML IV BTL (OFIRMEV) (J0131 PER 10MG) As Ordered ONE (14:18)
[2021-02-08] MEDS ORDERED: KETOROLAC 60MG 2ML VIAL As Ordered ONE (14:19)
[2021-02-08] MEDS ORDERED: METOCLOPRAMIDE INJ 10MG/2ML VIAL (J2765 PER 1) As Ordered ONE (14:20)
--- NOTE | 2021-02-08 14:47 | ROOPDOC ---
[facility] Report Of Operation Report of Operation DATE OF PROCEDURE: 02/08/21 PREPROCEDURE DIAGNOSES: Incomplete . POSTPROCEDURE DIAGNOSES: Same. PROCEDURE PERFORMED: D+E+C. SURGEON: Ronnie Casillas MD ANESTHESIA: General via LMA. ESTIMATED BLOOD LOSS: Approximately 20 mL. COMPLICATIONS: none. FINDINGS: Moderate amount of POC's SPECIMENS REMOVED: POC's DESCRIPTION OF PROCEDURE: The patient was taken to the operating room where LMA anesthesia was induced. She was prepped and draped in a sterile fashion in the dorsal lithotomy position. The bladder was emptied with a catheter. A speculum was placed in the vagina. The anterior lip of the cervix was grasped with a tenaculum. The cervix was dilated with tapered dilators. A number 8 mm suction curette was inserted through the internal os. Suction device was activated and the curette was gently rotated until products of conception were noted coming through the suction tubing. Sharp curettage performed. The uterine cavity was deemed to be empty. All instruments were removed. Sponge and instrument counts were correct. The patient was extubated went to the recovery room in stable condition. RONNIE CASILLAS MD Feb 08, 2021 14:47
[2021-02-08] MEDS ORDERED: ACETAMINOPHEN 500 MG TAB PO ONE (15:00)
[2021-02-08] MEDS ORDERED: ONDANSETRON 4MG/2ML VIAL IV PRN (15:00)
[2021-02-08] MEDS ORDERED: fentaNYL 100 MCG/2 ML INJECTION (J3010) IV PRN (15:00)
[2021-02-08] MEDS ORDERED: DOXYCYCLINE HYCLATE 100MG TABLET PO ONE (15:00)
[2021-02-08] MEDS ORDERED: LR 1,000 ML IV SCH ×2 (15:00)
[2021-02-08] MEDS ORDERED: oxyCODONE 5MG TAB PO PRN (15:00)
[2021-02-08 16:13] VITALS: BP 120/66
== END 2021-02-08 16:13 | disposition home or self-care (01) ==
LOC: M SDC 12:39
PROVIDERS: ATTEND Specialist
DX: O02.1 Missed abortion (principal)
CPT/HCPCS: 36415; 59820; 85027; 88305; J0131; J1100; J1885; J2250; J2405; J2765; J3010

== ENCOUNTER → 2021-05-07 | Outpatient (CLI) | payer BC, OTHER ==
[~2021-05-07] MED LIST changes: -LIDOCAINE 1% MDV 20ML VIAL SQ PRN; -LR 1,000 ML IV ONE
== END ==
LOC: M PLALAB 14:24
PROVIDERS: ATTEND Advanced Practice Midwife
DX: O20.0 Threatened abortion (principal)

== ENCOUNTER → 2022-01-25 | Outpatient (CLI) | payer BC, OTHER ==
[2022-01-25 16:17] LABS: FREE T4 1.22 NG/DL (0.76-1.46); THYROID STIMULATING HORMONE 2.14 uIU/ML (0.358-3.740)
== END ==
LOC: M PLALAB 12:58
PROVIDERS: ATTEND Nurse Practitioner Family
DX: E03.9 Hypothyroidism, unspecified (principal)

== ENCOUNTER → 2022-03-01 | Outpatient (CLI) | payer BC, OTHER | LOC: M PLALAB 15:35 | PROVIDERS: ATTEND Obstetrics & Gynecology | DX: N91.2 Amenorrhea, unspecified (principal) ==

== ENCOUNTER → 2022-03-22 | Outpatient (CLI) | payer BC, OTHER | LOC: M PLALAB 12:53 | PROVIDERS: ATTEND Obstetrics & Gynecology | DX: Z32.01 Encounter for pregnancy test, result positive (principal) ==

== ENCOUNTER → 2022-03-22 | Outpatient (CLI) | payer BC, OTHER ==
[2022-03-22 16:37] LABS: FREE T4 0.98 NG/DL (0.76-1.46); THYROID STIMULATING HORMONE 1.68 uIU/ML (0.358-3.740)
== END ==
LOC: M PLALAB 12:56
PROVIDERS: ATTEND Nurse Practitioner Family
DX: E06.3 Autoimmune thyroiditis (principal)

== ENCOUNTER → 2022-04-02 | Outpatient (CLI) | payer BC, OTHER | LOC: M PLALAB 15:52 | PROVIDERS: ATTEND Obstetrics & Gynecology | DX: N91.2 Amenorrhea, unspecified (principal) ==

== ENCOUNTER → 2022-09-11 | Outpatient (CLI) | payer BC, OTHER | LOC: M PLALAB 11:23 | PROVIDERS: ATTEND Obstetrics & Gynecology | DX: Z34.90 Encounter for supervision of normal pregnancy, unspecified, unspecified trimester (principal) ==

== ENCOUNTER → 2022-09-11 | Outpatient (CLI) | payer BC, OTHER ==
[2022-09-11 13:52] LABS: THYROID STIMULATING HORMONE 4.341 uIU/ML (0.55-4.78)
[2022-09-11 13:53] LABS: FREE T4 1.13 NG/DL (0.89-1.76)
== END ==
LOC: M PLALAB 11:25
PROVIDERS: ATTEND Nurse Practitioner Family
DX: E06.3 Autoimmune thyroiditis (principal)

== ENCOUNTER → 2022-09-19 | Outpatient (CLI) | payer BC, OTHER | LOC: M PLALAB 09:37 | PROVIDERS: ATTEND Obstetrics & Gynecology | DX: Z34.90 Encounter for supervision of normal pregnancy, unspecified, unspecified trimester (principal) ==

== ENCOUNTER → 2022-10-11 | Outpatient (CLI) | payer BC, OTHER ==
[2022-10-11 14:17] LABS: THYROID STIMULATING HORMONE 3.256 uIU/ML (0.55-4.78)
[2022-10-11 14:18] LABS: FREE T4 1.02 NG/DL (0.89-1.76)
== END ==
LOC: M PLALAB 10:20
PROVIDERS: ATTEND Nurse Practitioner Family
DX: E06.3 Autoimmune thyroiditis (principal)

== ENCOUNTER → 2022-10-28 | Outpatient (CLI) | payer BC, OTHER | LOC: M PLALAB 11:45 | PROVIDERS: ATTEND Obstetrics & Gynecology | DX: Z34.81 Encounter for supervision of other normal pregnancy, first trimester (principal) ==

== ENCOUNTER → 2022-11-18 | Outpatient (CLI) | payer BC, OTHER ==
[2022-11-18 17:49] LABS: THYROID STIMULATING HORMONE 2.031 uIU/ML (0.55-4.78)
[2022-11-18 17:50] LABS: FREE T4 1.15 NG/DL (0.89-1.76)
== END ==
LOC: M PLALAB 14:43
PROVIDERS: ATTEND Internal Medicine Endocrinology, Diabetes & Metabolism
DX: E06.3 Autoimmune thyroiditis (principal)

== ENCOUNTER → 2022-12-24 | Outpatient (CLI) | payer BC, OTHER ==
[2022-12-24 19:03] LABS: THYROID STIMULATING HORMONE 2.503 uIU/ML (0.55-4.78)
== END ==
LOC: M PLALAB 14:41
PROVIDERS: ATTEND Internal Medicine Endocrinology, Diabetes & Metabolism
DX: E06.3 Autoimmune thyroiditis (principal)

== ENCOUNTER 2023-02-26 23:50 | Emergency (ER) | payer BC, OTHER ==
[~2023-02-26] VITALS: Ht 157.5 cm; Wt 113.0 kg
[2023-02-27] MEDS ORDERED: NS 1,000 ML IV ONE (02:50)
[2023-02-27] MEDS ORDERED: IBUPROFEN 600MG TAB PO ONE (02:55)
[2023-02-27 03:44] LABS: BASO % 0.3 % (0.0-1.0); EOS % 0.3 % (0.0-3.0); HEMATOCRIT 32.2 % (36.0-47.0); HEMOGLOBIN 9.8 g/dl (12.0-15.5); LYMPH # 0.8 10^3/uL (1.5-5.0); MEAN CORPUSCULAR HEMOGLOBIN 21.6 pg (27.0-33.0); MEAN CORPUSCULAR HGB CONC 30.4 g/dl (32.0-36.5); MEAN CORPUSCULAR VOLUME 71.1 fl (80.0-96.0); MONO # 0.9 10^3/uL (0.0-0.8); MONO % 8.9 % (2.0-8.0); NEUTROPHILS # 7.8 10^3/uL (1.5-8.5); NEUTROPHILS % 81.8 % (36.0-66.0); PLATELET COUNT, AUTOMATED 214 10^3/uL (150-450); RED BLOOD COUNT 4.53 10^6/uL (4.00-5.40); WHITE BLOOD COUNT 9.5 10^3/uL (4.0-10.0)
[2023-02-27 03:50] VITALS: BP 120/57; O2SAT 99
[2023-02-27 04:02] LABS: LIPASE 26 U/L (12-53)
[2023-02-27 04:04] LABS: ALBUMIN 2.5 G/DL (3.2-5.2); ALKALINE PHOSPHATASE 126 U/L (46-116); ALT/SGPT 21 U/L (7.0-40); AST/SGOT 20 U/L (<34); BILIRUBIN,DIRECT 0.2 MG/DL (<0.4); BILIRUBIN,TOTAL 0.7 MG/DL (0.3-1.2); BLOOD UREA NITROGEN 5 MG/DL (9-23); CALCIUM LEVEL 8.4 MG/DL (8.5-10.1); CARBON DIOXIDE LEVEL 23 MMOL/L (20-31); CHLORIDE LEVEL 105 MMOL/L (98-107); CREATININE FOR GFR 0.61 MG/DL (0.55-1.30); GLOMERULAR FILTRATION RATE > 60.0 (>60); GLUCOSE, FASTING 90 MG/DL (60-100); SODIUM LEVEL 137 MMOL/L (136-145); TOTAL PROTEIN 6.3 G/DL (5.7-8.2)
[2023-02-27 06:55] VITALS: TEMP 97.3
[2023-02-27] MEDS ORDERED: propofoL 1,000 MG in IV 1 EA IV SCH (07:05)
== END 2023-02-27 07:10 | disposition home or self-care (01) ==
LOC: M ED 23:50
DX: B34.8 Other viral infections of unspecified site (principal); E06.3 Autoimmune thyroiditis

== ENCOUNTER → 2023-11-28 | Outpatient (CLI) | payer BC, OTHER ==
[2023-11-28 13:07] LABS: BASO # 0.1 10^3/uL (0.0-0.2); BASO % 1.3 % (0.0-1.0); EOS # 0.6 10^3/uL (0.0-0.5); EOS % 8.8 % (0.0-3.0); HEMOGLOBIN 11.8 g/dl (12.0-15.5); LYMPH # 2.2 10^3/uL (1.5-5.0); LYMPH % 35.1 % (24.0-44.0); MEAN CORPUSCULAR HEMOGLOBIN 21.9 pg (27.0-33.0); MEAN CORPUSCULAR HGB CONC 30.3 g/dl (32.0-36.5); MEAN CORPUSCULAR VOLUME 72.4 fl (80.0-96.0); MONO # 0.5 10^3/uL (0.0-0.8); NEUTROPHILS % 46.6 % (36.0-66.0); PLATELET COUNT, AUTOMATED 301 10^3/uL (150-450); RED BLOOD COUNT 5.39 10^6/uL (4.00-5.40); WHITE BLOOD COUNT 6.4 10^3/uL (4.0-10.0)
[2023-11-28 13:14] LABS: ALBUMIN 3.5 G/DL (3.2-5.2); ALKALINE PHOSPHATASE 129 U/L (46-116); ALT/SGPT 24 U/L (7.0-40); AST/SGOT 8 U/L (<34); BILIRUBIN,TOTAL 0.6 MG/DL (0.3-1.2); BLOOD UREA NITROGEN 17 MG/DL (9-23); CALCIUM LEVEL 8.8 MG/DL (8.5-10.1); CARBON DIOXIDE LEVEL 29 MMOL/L (20-31); CHLORIDE LEVEL 106 MMOL/L (98-107); CHOLESTEROL LEVEL 225 MG/DL (<200); CHOLESTEROL RISK RATIO 3.61 (<5); CREATININE FOR GFR 0.72 MG/DL (0.55-1.30); GLOMERULAR FILTRATION RATE > 60.0 (>60); GLUCOSE, FASTING 78 MG/DL (60-100); HDL CHOLESTEROL 62.3 MG/DL (>40); LDL CHOLESTEROL 150.9 MG/DL (<100); NON-HDL-C 162.7 MG/DL; SODIUM LEVEL 138 MMOL/L (136-145); TOTAL PROTEIN 6.6 G/DL (5.7-8.2); TRIGLYCERIDES LEVEL 59 MG/DL (<150)
[2023-11-28 13:16] LABS: FREE T4 0.81 NG/DL (0.89-1.76); THYROID STIMULATING HORMONE 11.522 uIU/ML (0.55-4.78)
[2023-11-28 13:26] LABS: HEMOGLOBIN A1c 5.6 % (4.0-6.0)
== END ==
LOC: M PLALAB 10:05
PROVIDERS: ATTEND Registered Nurse
DX: E66.9 Obesity, unspecified (principal)

== ENCOUNTER → 2025-02-22 | Outpatient (CLI) | payer BC | LOC: M PLALAB 15:13 | PROVIDERS: ATTEND Obstetrics & Gynecology | DX: Z34.81 Encounter for supervision of other normal pregnancy, first trimester (principal); Z3A.00 Weeks of gestation of pregnancy not specified ==

== ENCOUNTER 2025-06-07 01:37 | Outpatient (CLI) | payer BC ==
[~2025-06-07] VITALS: Ht 157.5 cm; Wt 121.7 kg
[2025-06-07 02:23] LABS: KETONE, URINE AUTO RFX NEGATIVE (NEGATIVE); MUCUS, URINE RFX SMALL (NEGATIVE); NITRITE, URINE AUTO RFX NEGATIVE (NEGATIVE); RBC, URINE AUTO RFX 1 /HPF (0-3); SQUAM EPITHELIAL CELL UR AURFX 7 /HPF (0-6); WBC, URINE AUTO RFX 5 /HPF (0-3)
[2025-06-07 02:24] LABS: LEUKOCYTE ESTERASE UR AUTO RFX TRACE (NEGATIVE)
[2025-06-07 02:38] VITALS: BP 124/66
== END 2025-06-07 05:19 | disposition home or self-care (01) ==
LOC: M LDO 01:37
PROVIDERS: ATTEND Advanced Practice Midwife
DX: O26.892 Other specified pregnancy related conditions, second trimester (principal); O34.211 Maternal care for low transverse scar from previous cesarean delivery; O99.212 Obesity complicating pregnancy, second trimester; O99.342 Other mental disorders complicating pregnancy, second trimester; O99.282 Endocrine, nutritional and metabolic diseases complicating pregnancy, second trimester; R25.2 Cramp and spasm; M54.50 Low back pain, unspecified; F32.A Depression, unspecified; E66.9 Obesity, unspecified; E06.3 Autoimmune thyroiditis; Z3A.25 25 weeks gestation of pregnancy
CPT/HCPCS: 59025; 76815; 76817; 76819; 81001; 87086; G0463